=== PATIENT | male | born 1985 | race Caucasian/White ===

== ENCOUNTER 2020-09-12 16:15 | Emergency (ER) | payer SELFPAY ==
[2020-09-12 16:31] VITALS: BP 138/74; PULSE 72; RESP 16; TEMP 36.9; O2SAT 97
--- NOTE | 2020-09-12 16:45 | DI.RAD_ITS ---
Exam(s) XR HAND LT COMPLETE EXAM: XR HAND LT COMPLETE CLINICAL HISTORY: left hand injury, pain at 3rd mcp and scaphoid. TECHNIQUE: 2D digital imaging was performed. COMPARISON: No exams were available for comparison FINDINGS: BONES: No acute fracture is present. No bony destructive lesion is seen. JOINTS: No dislocation present. SOFT TISSUE: Normal. IMPRESSION: Unremarkable radiographs of the left hand. DATA REPOSITORY: RADIATION DOSE DELIVERED:
--- NOTE | 2020-09-12 17:21 | DI.VRAD_ITS ---
PROCEDURE INFORMATION: Exam: XR Left Hand Exam date and time: 09/12/2020 4:51 PM Age: 35 years old Clinical indication: Injury or trauma; Other: Left hand injury, pain at 3rd mcp and scaphoid; Blunt trauma (contusions or hematomas) TECHNIQUE: Imaging protocol: XR Left hand. Views: 3 or more views. COMPARISON: No relevant prior studies available. FINDINGS: Bones/joints: There is a thin oblique lucency within the medial diaphysis of the proximal phalanx of the 5th digit suspicious for a nondisplaced fracture. The 3rd metacarpophalangeal joint and scaphoid are unremarkable. No other suspected osseous injury. Soft tissues: Normal. IMPRESSION: There is a thin oblique lucency within the medial diaphysis of the proximal phalanx of the 5th digit suspicious for a nondisplaced fracture. Dictated and Authenticated by: Paolo Velásquez MD. Ordering:RACHEL Scherer MD
--- NOTE | 2020-09-12 17:37 | ED.GENADUL_ITS ---
Discharge Plan Disposition Patient Disposition: HOME Condition: Good Discharge Details Clinical Impression: Laceration of arm, Finger injury Primary Care Provider: None,None ED Provider: Niesha Lang Home Meds and New Rx's Prescriptions: No Action epinephrine [EpiPen] 0.3 MG/0.3 ML auto-injector 0.3 mg IM ONCE PRNQty: 1 RF: 0 Discharge Instructions Instructions: Laceration (ED) Additional Instructions: Take ibuprofen and Tylenol as needed for pain Change your dressing daily Return with spreading redness, fever, worsening pain You do not have evidence of a fracture on your x-ray, repeat x-ray with persistent pain, follow-up with your hand surgeon at your scheduled treatment Please removal in 7 to 10 days Keep wound dry Discharge Data Discharge Date/Time-TO BE ENTERED AT DEPARTURE: 09/12/20 17:46 Medical Decision Making X-ray per V rad interpretation shows a lucency of the fifth proximal phalanx, patient is not tender in this area, I do not suspect that this is acute and therefore patient was not splinted Over area of tenderness there is no evidence of fracture per my review and r adiology interpretation Sutures were placed without incident Removal in 7 to 10 days recommended Return precautions discussed patient expressed understanding Has appointment with orthopedics on the for reevaluation No evidence of open fracture, neurovascularly intact Medical Records Medical records reviewed: Yes I reviewed the patient's medical records. HPI General Mode of arrival: ambulatory . Date/Time Provider Initiated Documentation: 09/12/20 16:43 . Limitations to Documentation: no limitations . Information obtained by: patient . HPI Narrative: 36-year-old gentleman presents with laceration to left upper arm. This occurred at work. He denies any additional injuries. He denies any strength or sensation changes. He states that a piece of steel kicked back his arm. His tetanus is up-to-date. Is lifting something heavy when he felt a popping sensation in his finger. He denies any additional injuries. He states that the pain has resolved since that time. He states he is scheduled for a surgery for trigger finger on the affected extremity. Denies any pain with movement at this time. Related Data Home Medications Medication Instructions Recorded Confirmed epinephrine [Epipen] 0.3 mg IM ONCE PRN #1 ml 07/04/12 09/12/20 Previous Rx's Medication Instructions Recorded epinephrine [Epipen] 0.3 mg IM ONCE PRN #1 ml 07/04/12 Allergies Allergy/AdvReac Type Severity Reaction Status Date / Time honey bees Allergy Severe Anaphylaxsi Uncoded 09/12/20 16:35 s General Stated Complaint: Laceration DEVON: 4 Review of Systems Narrative: Review of systems negative x3 aside from where indicated in HPI PFSH Social History Smoking/Tobacco Use Status: Current every day Tobacco Type: e-cigarettes Smoking risk assessment performed?: Yes Alcohol Intake: never Drug use: Occasionally Substance use type: marijuana Exam Extrem Shoulder/upper arm images: 1. 2 inch laceration Hand/finger images: 1. Mild tenderness to palpation, no visible sign of trauma, brisk capillary refill, strength and sensation intact Neurovascularly intact to affected extremity Course Vital Signs Vital signs: Vital Signs Temperature 36.9 C 09/12/20 16:31 Pulse 72 09/12/20 16:31 Respiratory Rate 16 09/12/20 16:31 Blood Pressure 138/74 09/12/20 16:31 Pulse Oximetry 97 09/12/20 16:31 Temperature 36.9 C 09/12/20 16:31 Temperature Source Skin 09/12/20 16:31 Pulse 72 09/12/20 16:31 Respiratory Rate 16 09/12/20 16:31 Respiratory Effort 09/12/20 16:31 Blood Pressure 138/74 09/12/20 16:31 Pulse Oximetry 97 09/12/20 16:31 Oxygen Delivery Method Room Air 09/12/20 16:31 Oxygen Flow Rate 0 09/12/20 16:31 Pain Level 5 09/12/20 16:31 Procedures Laceration Laceration 1: Site: upper extremity Side (If applicable): left Size (cm): 5 Description: linear Depth: simple, single layer Amount of anesthesia used (mL): 3 Pre-repair: wound explored and irrigated extensively Skin layer closed with: nylon Size (cm): 4-0 Number of sutures: 4 Technique: simple, interrupted
== END 2020-09-12 17:46 | disposition home or self-care (01) ==
PROVIDERS: Emergency Provider Physician Assistant
DX: S41.112A Laceration without foreign body of left upper arm, initial encounter (principal); S69.82XA Other specified injuries of left wrist, hand and finger(s), initial encounter; W26.8XXA Contact with other sharp object(s), not elsewhere classified, initial encounter; Y99.0 Civilian activity done for income or pay
CPT/HCPCS: 12002; 99283; 73130; 99282

== ENCOUNTER → 2022-02-17 13:19 | Outpatient (CLI) | payer OTHER, SELFPAY ==
--- NOTE | 2022-02-17 11:15 | DI.RAD_ITS ---
Exam(s) XR HAND LT COMPLETE EXAM: XR HAND LT COMPLETE CLINICAL HISTORY: Persistent left palmar pain, s/p work injury,h/o lt 3rd trigger finger. TECHNIQUE: 2D digital imaging was performed of the left hand. Three views were obtained. AP, later al and oblique views were obtained. COMPARISON: CR,XR XR HAND LT COMPLETE from 09/12/2020 FINDINGS: BONES: No acute fracture is present. No bony destructive lesion is seen. JOINTS: No dislocation present. SOFT TISSUE: Normal. IMPRESSION: Unremarkable radiographs of the left hand. DATA REPOSITORY: RADIATION DOSE DELIVERED:
== END ==
PROVIDERS: Visit Provider Nurse Practitioner Family
DX: M79.642 Pain in left hand (principal)
CPT/HCPCS: 73130

== ENCOUNTER 2022-03-22 14:48 | Outpatient (CLI) | payer OTHER, SELFPAY ==
[2022-03-22 13:48] LABS: HCT 41.6 % (40.0-50.0); HGB 14.7 g/dL (13.5-17.5); MCH 31.1 pg (27.0-33.0); MCHC 35.3 % (32.0-36.0); MCV 88 fL (80-95); MPV 10.3 fL (8.0-11.0); Platelet Count 217 10^3/uL (130-400); RBC 4.72 10^6/uL (4.36-5.78); RDW 12.5 % (11.8-14.1); RDW-SD 40.8 fL; WBC 10.71 10^3/uL (4.4-10.8)
[2022-03-22 13:50] LABS: ESR 1 mm/hr (0-15)
[2022-03-22 13:57] LABS: Uric Acid 5.7 mg/dL (3.5-7.2)
== END 2022-03-22 14:49 | disposition home or self-care (01) ==
LOC: LBO 14:51
PROVIDERS: Visit Provider Nurse Practitioner Family
DX: M10.9 Gout, unspecified (principal); M79.642 Pain in left hand
CPT/HCPCS: 36415; 85027; 85652; 84550